=== PATIENT | female | born 1955 | race Caucasian/White ===

== ENCOUNTER 2017-04-03 22:26 | Emergency (ER) | payer MEDICAID ==
[~2017-04-03] VITALS: Ht 162.6 cm; Wt 64.0 kg
[2017-04-03 22:49] VITALS: BP 157/71
[2017-04-04 02:12] VITALS: BP 135/75
== END 2017-04-04 02:12 | disposition home or self-care (01) ==
LOC: MED 22:26
DX: S52.591A Other fractures of lower end of right radius, initial encounter for closed fracture (principal); I10 Essential (primary) hypertension; X58.XXXA Exposure to other specified factors, initial encounter; Y93.89 Activity, other specified; Y92.89 Other specified places as the place of occurrence of the external cause; Y99.8 Other external cause status
CPT/HCPCS: 29105; 73110; 99284

== ENCOUNTER 2023-05-27 09:09 | Emergency (ER) | payer MEDICAID, OTHER ==
[~2023-05-27] VITALS: Ht 152.4 cm; Wt 54.4 kg
[2023-05-27 09:55] VITALS: BP 142/78; PULSE 98; RESP 20; TEMP 99.3; O2SAT 98
[2023-05-27] MEDS ORDERED: NAPR-1704 PO (11:03)
[2023-05-27 11:29] VITALS: BP 135/80; PULSE 88; RESP 20; TEMP 98.7; O2SAT 99
[2023-05-27 11:38] LABS: FLU A ANTIGEN negative (NEGATIVE); FLU B ANTIGEN negative (NEGATIVE)
== END 2023-05-27 11:29 | disposition home or self-care (01) ==
LOC: MED 09:09
DX: B34.9 Viral infection, unspecified (principal); Z20.822 Contact with and (suspected) exposure to COVID-19; I10 Essential (primary) hypertension; Z79.899 Other long term (current) drug therapy
CPT/HCPCS: 93005; 99284

== ENCOUNTER 2023-07-23 14:53 | Emergency (ER) | payer OTHER ==
[~2023-07-23] VITALS: Ht 152.4 cm; Wt 55.0 kg
[~2023-07-23 14:53] MED LIST: NAPR-1704 PO
[2023-07-23 15:48] VITALS: BP 139/92; PULSE 66; RESP 14; TEMP 97.8; O2SAT 99
[2023-07-23] MEDS ORDERED: TETRACAINE HCL/PF 0.5% OPTH 4 ML BTL OP ONE (16:15)
[2023-07-23] MEDS ORDERED: FLUORESCEIN OPTH STRIP 1 MG OP ONE (16:15)
[2023-07-23] MEDS ORDERED: ERYT5OIN58 BOTH EYES (16:48)
[2023-07-23] MEDS ORDERED: OLOP2.5D7 BOTH EYES (16:48)
== END 2023-07-23 17:01 | disposition home or self-care (01) ==
LOC: MED 14:53
DX: H10.9 Unspecified conjunctivitis (principal); H01.006 Unspecified blepharitis left eye, unspecified eyelid; I10 Essential (primary) hypertension; E78.5 Hyperlipidemia, unspecified; Z79.1 Long term (current) use of non-steroidal anti-inflammatories (NSAID)
CPT/HCPCS: 99283